=== PATIENT | female | born 1985 | race Two or more races ===

== ENCOUNTER 2023-01-16 08:39 | Outpatient (CLI) | payer OTHER | END 2023-01-16 08:42 | disposition home or self-care (01) | LOC: SONOGRAMA 08:39 | PROVIDERS: ATTEND Pathology Anatomic Pathology & Clinical Pathology | DX: D34 Benign neoplasm of thyroid gland (principal); D44.0 Neoplasm of uncertain behavior of thyroid gland; E07.9 Disorder of thyroid, unspecified; E04.9 Nontoxic goiter, unspecified ==

== ENCOUNTER 2023-02-13 14:21 | Outpatient (CLI) | payer OTHER | END 2023-02-13 14:24 | disposition home or self-care (01) | LOC: SONOGRAMA 14:21 | PROVIDERS: ATTEND Pathology Anatomic Pathology & Clinical Pathology | DX: D34 Benign neoplasm of thyroid gland (principal); E07.9 Disorder of thyroid, unspecified ==